=== PATIENT | male | born 1945 | race Two or more races ===

== ENCOUNTER 2023-06-15 14:32 | Observation (INO) | payer MEDICARE, OTHER, SELFPAY ==
[2023-06-15] VITALS (22 sets, daily range): BP systolic 133–173; BP diastolic 60–70; PULSE 79–103; RESP 11–28; TEMP 36.5–37.1; O2SAT 93–100; BMI 28.0; BMI 28.3
--- NOTE | 2023-06-15 14:53 | ECG_ITS ---
[facility] Test Date: 2023-06-15 Pat Name: MELO HOLLEY Department: Room: - Gender: Male Banking Services Officer: : 1945 Requested By: 0923 Order Number: [id number] Reading MD: DOMINIQUE VASQUEZ Measurements Intervals [place] Rate: 97 P: 45 CO: 164 QRS: -4 QRSD: 90 T: 90 QT: 344 QTc: 399 Interpretive Statements 1100 Sinus rhythm 9110 normal ECG No previous ECG available for comparison Electronically Signed On 06-20-2023 6:54:40 EST by DOMINIQUE VASQUEZ
[2023-06-15 15:00] LABS: Basophils Percent Auto 0.1 % (0.2-2.0); Hemoglobin 7.6 g/dL (14.0-18.0); Immature Granulocytes Abs Auto 0.07 10^3/uL (0.00-0.03); Immature Granulocytes Pct Auto 0.8 % (0.0-0.5); Lymphocytes Absolute Auto 0.8 10^3/uL (1.2-3.8); Mean Corpuscular HGB Conc 33.8 g/dL (29.9-35.2); Mean Corpuscular Hemoglobin 32.5 pg (25.9-34.0); Mean Corpuscular Volume 96.2 fL (80.0-94.0); Mean Platelet Volume 10.7 fL (9.5-13.5); Monocytes Absolute Auto 0.2 10^3/uL (0.3-0.8); Monocytes Percent Auto 1.8 % (1.7-12.0); Neutrophils Absolute Auto 7.8 10^3/uL (1.4-6.5); Neutrophils Percent Auto 88.3 % (43.0-75.0); Platelet Count 224 10^3/uL (150-450); Red Blood Count 2.34 10^6/uL (4.70-6.10); Red Cell Distribution Width 13.2 % (11.0-15.0); White Blood Count 8.8 10^3/uL (4.0-11.0)
[2023-06-15 15:03] LABS: Hematocrit 22.5 % (42.0-54.0)
[2023-06-15 15:16] LABS: Alanine Aminotransferase 31 U/L (16-63); Albumin Globulin Ratio 0.9; Albumin Level 3.6 g/dL (3.4-5.0); Alkaline Phosphatase 123 U/L (46-116); Anion Gap 11.7; Aspartate Amino Transferase 13 U/L (15-37); BUN Creatinine Ratio 21.7; Bilirubin Total 0.2 mg/dL (0.2-1.0); Calcium 8.3 mg/dL (8.5-10.1); Chloride 100 mmol/L (98-107); Estimated GFR (African America 38 (>=60); Estimated GFR (Non-African Ame 31 (>=60); Globulin 3.8 g/dL; Glucose 372 mg/dL (74-106); Potassium 4.7 mmol/L (3.5-5.1); Sodium 131 mmol/L (136-145); Total Protein 7.4 g/dL (6.4-8.2)
[2023-06-15 15:20] LABS: Troponin I High Sensitivity 17.8 pg/mL (4.0-76.1)
--- NOTE | 2023-06-15 15:23 | ED.GENADUL1 ---
HPI - General Adult General Chief complaint: Weakness Stated complaint: GENERAL WEAKNESS Time Seen by Provider: 06/15/23 14:45 Source: patient Mode of arrival: walk-in Limitations: no limitations History of Present Illness HPI narrative: 77-year-old male presents to the emergency room with a chief complaint of dizziness, chest pain and low hemoglobin. Patient went and saw his primary care physician today and was sent to the emergency room for admission stating he needed blood . Patient had a fingerstick in the office that showed a hemoglobin of 7.4. Patient does have a history of anemia with iron infusions. pt poor historian but states he has anemia due to chronic kidney disease.states he thinks he has had scopes in the past. He is scheduled to have an iron infusion in four days. He's had some shortness of breath and chest pressure. States he has a symptoms when he becomes low and iron. Related Data Allergies Allergy/AdvReac Type Severity Reaction Status Date / Time polyester fibers Allergy Severe itching Verified 06/15/23 14:50 simvastatin Allergy Severe Muscle Pain Verified 06/15/23 14:50 Penicillins Allergy Swelling Verified 06/15/23 14:50 of Lip/Tongue/Throat Review of Systems ROS Narrative All Systems are negative except as noted/marked.All systems reviewed and otherwise negative PFSH PFSH Social History Smoking status: Former smoker Exam Narrative Exam Narrative: Nurses note and vital signs reviewed and patient is not hypoxic. General: The patient appears well and in no apparent distress. Patient is resting comfortably on cart. Skin: Warm, dry, no pallor noted. There is no rash noted. Head: Normocephalic, atraumatic Eye: Normal conjunctiva, no drainage, EOMI. PERRL Ears, Nose, Mouth, and Throat: oral mucosa is moist. Nares patent. Mouth without vesicles. Ear canals patent. Tm's without Erythema Cardiovascular: Regular Rate and Rhythm Respiratory: Patient is in no distress, no accessory muscle use, lungs are clear to auscultation, no wheezing, rales or rhonchi Back: non-tender, no CVA tenderness bilaterally to percussion. Rectal exam: Good rectal tone, no acute rectal bleeding appreciated no dark stool GI: Normal bowel sounds, no tenderness to palpation, no masses appreciated. No rebound, guarding, or rigidity noted. Musculoskeletal: The patient has no evidence of calf tenderness, no pitting edema, symmetrical pulses noted bilaterally Neurological: A&O x4, normal speech Psychiatric: Cooperative Constitutional Vital Signs, click to edit/add: Last Vital Signs Temp 97.9 F 06/15/23 14:35 Pulse 102 H 06/15/23 14:35 Resp 20 06/15/23 14:35 BP 173/70 H 06/15/23 14:35 Pulse Ox 100 06/15/23 14:35 O2 Del Method Room Air 06/15/23 14:35 Course Vital Signs Vital signs: Vital Signs Temperature 97.9 F 06/15/23 14:35 Pulse Rate 102 H 06/15/23 14:35 Respiratory Rate 20 06/15/23 14:35 Blood Pressure 173/70 H 06/15/23 14:35 Pulse Oximetry 100 06/15/23 14:35 Oxygen Delivery Method Room Air 06/15/23 14:35 Temperature 97.9 F 06/15/23 14:35 Pulse Rate 102 H 06/15/23 14:35 Respiratory Rate 20 06/15/23 14:35 Blood Pressure 173/70 H 06/15/23 14:35 Pulse Oximetry 100 06/15/23 14:35 Oxygen Delivery Method Room Air 06/15/23 14:35 Medical Decision Making MDM Narrative Medical decision making narrative: Patient was sent to the emergency room by primary care physician's office. Patient went there office today because he had felt dizzy and weakness. States he felt chest pressure. He has a history of kidney disease with anemia. He states he was checked in their offices fingerstick there for his hemoglobin was 7.4. Labwork reviewed here shows a hemoglobin 7.6 hematocrit of 22.5. Sodium is one thirty-one BUN and creatinine is forty-five and 2.07. Patient's troponin is negative. Patient believes he has had upper and lower scopes before but cannot recall how long ago. He usually goes to suggest the [facility] for iron transfusions. Patient's admitted for anemia and gastrointestinal bleed here today. He will be admitted for observation telemetry. I did speak to Dr. Santillan concerning this patient's care. Differential Diagnosis Differential Diagnosis: anemia, gi bleed Medical Records Medical records reviewed: Yes I reviewed the patient's medical records Medical records narrative: Patient was sent to the emergency room by primary care physician's office. Patient went there office today because he had felt dizzy and weakness. States he felt chest pressure. He has a history of kidney disease with anemia. He states he was checked in their offices fingerstick there for his hemoglobin was 7.4. Labwork reviewed here shows a hemoglobin 7.6 hematocrit of 22.5. Sodium is one thirty-one BUN and creatinine is forty-five and 2.07. Patient's troponin is negative. Patient believes he has had upper and lower scopes before but cannot recall how long ago. He usually goes to suggest the [facility] for iron transfusions. Patient's admitted for anemia and gastrointestinal bleed here today. He will be admitted for observation telemetry. I did speak to Dr. Santillan concerning this patient's care. Lab Data Lab results reviewed: Yes I reviewed the patient's lab results Labs: Lab Results 06/15/23 06/15/23 Range/Units 14:52 15:20 WBC 8.8 (4.0-11.0) 10^3/uL RBC 2.34 L (4.70-6.10) 10^6/uL Hgb 7.6 L (14.0-18.0) g/dL Hct 22.5 L* (42.0-54.0) % MCV 96.2 H (80.0-94.0) fL MCH 32.5 (25.9-34.0) pg MCHC 33.8 (29.9-35.2) g/dL RDW 13.2 (11.0-15.0) % Plt Count 224 (150-450) 10^3/uL MPV 10.7 (9.5-13.5) fL Neut % (Auto) 88.3 H (43.0-75.0) % Lymph % (Auto) 9.0 L (20.5-60.0) % [place] % (Auto) 1.8 (1.7-12.0) % Eos % (Auto) 0.0 L (0.9-7.0) % Baso % (Auto) 0.1 L (0.2-2.0) % Neut # (Auto) 7.8 H (1.4-6.5) 10^3/uL Lymph # (Auto) 0.8 L (1.2-3.8) 10^3/uL [place] # (Auto) 0.2 L (0.3-0.8) 10^3/uL Eos # (Auto) 0.0 (0.0-0.7) 10^3/uL Baso # (Auto) 0.0 (0.0-0.1) 10^3/uL Abs Immat Gran (auto) 0.07 H (0.00-0.03) 10^3/uL Imm/Tot Granulo (auto) 0.8 H (0.0-0.5) % Sodium 131 L (136-145) mmol/L Potassium 4.7 (3.5-5.1) mmol/L Chloride 100 (98-107) mmol/L Carbon Dioxide 24.0 (21.0-32.0) mmol/L Anion Gap 11.7 BUN 45.0 H (7.0-18.0) mg/dL Creatinine 2.07 H (0.70-1.30) mg/dL Est GFR ( Amer) 38 L (>=60) Est GFR (Non-Af Amer) 31 L (>=60) BUN/Creatinine Ratio 21.7 Glucose 372 H (74-106) mg/dL Calcium 8.3 L (8.5-10.1) mg/dL Total Bilirubin 0.2 (0.2-1.0) mg/dL AST 13 L (15-37) U/L ALT 31 (16-63) U/L Alkaline Phosphatase 123 H (46-116) U/L Troponin I High Sens 17.8 (4.0-76.1) pg/mL Total Protein 7.4 (6.4-8.2) g/dL Albumin 3.6 (3.4-5.0) g/dL Globulin 3.8 g/dL Albumin/Globulin Ratio 0.9 Stool Occult Blood Positive A Blood Type O Positive Antibody Screen Negative ECG Data Attestation: ?I have reviewed the pertinent ECG results. Interpretation: 1520 Normal sinus rhythm with a rate of 97 bpm, OR interval 164 ms, QRS duration 90 ms, no STEMI Discharge Plan Discharge Chief Complaint: Weakness Clinical Impression: GI bleed, Anemia Patient Disposition: Admitted as Observation Time of Disposition Decision: 15:40 Condition: Fair
[2023-06-15 15:24] LABS: Occult Blood Positive
[2023-06-15] MEDS: 0.9 % SODIUM CHLORIDE 1,000 ML 1000 ML IV (15:30)
[2023-06-15] MEDS: DIPHENHYDRAMINE HCL 25 MG CAPSULE PO (23:07)
[2023-06-15] MEDS: FUROSEMIDE 40 MG/4 ML VIAL 20 MG IV (23:08)
[2023-06-16] VITALS (12 sets, daily range): BP systolic 135–154; BP diastolic 56–72; PULSE 55–91; RESP 16–18; TEMP 36.5–36.8; O2SAT 95–98
[2023-06-16] MEDS: IRON SUCROSE COMPLEX 200 MG in 0.9 % SODIUM CHLORIDE 100 ML 220 MG IV (03:25)
[2023-06-16 05:18] LABS: Basophils Percent Auto 0.2 % (0.2-2.0); Eosinophils Percent Auto 0.2 % (0.9-7.0); Hematocrit 26.4 % (42.0-54.0); Hemoglobin 8.7 g/dL (14.0-18.0); Immature Granulocytes Abs Auto 0.05 10^3/uL (0.00-0.03); Immature Granulocytes Pct Auto 0.6 % (0.0-0.5); Lymphocytes Absolute Auto 1.3 10^3/uL (1.2-3.8); Lymphocytes Percent Auto 15.9 % (20.5-60.0); Mean Platelet Volume 11.2 fL (9.5-13.5); Monocytes Absolute Auto 0.5 10^3/uL (0.3-0.8); Monocytes Percent Auto 6.3 % (1.7-12.0); Neutrophils Absolute Auto 6.4 10^3/uL (1.4-6.5); Neutrophils Percent Auto 76.8 % (43.0-75.0); Platelet Count 198 10^3/uL (150-450); Red Blood Count 2.81 10^6/uL (4.70-6.10); Red Cell Distribution Width 15.2 % (11.0-15.0); White Blood Count 8.4 10^3/uL (4.0-11.0)
[2023-06-16 05:35] LABS: Anion Gap 13.3; BUN Creatinine Ratio 24.7; Carbon Dioxide 22.3 mmol/L (21.0-32.0); Chloride 103 mmol/L (98-107); Estimated GFR (African America 42 (>=60); Estimated GFR (Non-African Ame 34 (>=60); Glucose 254 mg/dL (74-106); Potassium 4.6 mmol/L (3.5-5.1); Sodium 134 mmol/L (136-145)
[2023-06-16] MEDS: OMEPRAZOLE 20 MG CAPSULE.DR PO (05:37)
[2023-06-16] MEDS: LISINOPRIL 20 MG TABLET PO (09:36)
[2023-06-16 11:01] LABS: Hematocrit 27.4 % (42.0-54.0); Hemoglobin 9.3 g/dL (14.0-18.0)
--- NOTE | 2023-06-16 12:35 | PM.HP ---
H&P: HPI History of Present Illness Chief complaint: Generalized weakness, lightheadedness Narrative: HPI and Hospital Course: 77 y o male was sent from PCP's office after he was found to have low Hb of 7.6 He went to see his PCP for feeling tired, weak, along with orthostatic dizziness/lightheadedness and was found to have low Hb on blood work. Patient himself denies brbpr, or melena. He reports receiving blood transfusion a little over a year ago. He had EGD/colonoscopy about 4-5 years ago. He has CKD and was told that his anemia is due to CKD. Patient 2 units PRBC overnight and was hydrated with IVF. He reports feeling better today and has no active complaints to offer. Admission Diagnosis Symptomatic anemia Anemia due to GI blood loss. CKD 4 HTN Discharge Diagnosis as above Discharge status stable. Review of Systems ROS Status of ROS 10 or more systems reviewed and unremarkable except as noted in history and below [facility] Medical History (Updated 06/16/23 @ 12:44 by Shaikh Kayode MD) CKD (chronic kidney disease) stage 4, GFR 15-29 ml/min ?N18.4 - Chronic kidney disease, stage 4 (severe) (ICD-10) HTN (hypertension) ?I10 - Essential (primary) hypertension (ICD-10) Surgical History (Updated 06/15/23 @ 17:25 by Vero Richey LPN) History of appendectomy ?Z90.49 - Acquired absence of other specified parts of digestive tract (ICD-10) History of cholecystectomy ?Z90.49 - Acquired absence of other specified parts of digestive tract (ICD-10) Family History (Updated 06/15/23 @ 17:28 by Vero Richey LPN) Father Family history of CHF (congestive heart failure) Family history of myocardial infarction Brother Family history of CHF (congestive heart failure) Sister Family history of diabetes mellitus Social History (Updated 06/15/23 @ 17:29 by Vero Richey LPN) Within the past year, how often did you have a drink containing alcohol: never Within the past year, how many standard drinks containing alcohol did you have on a typical day: 1 or 2 Total score: 0 Score interpretation: A score less than 4 is consistent with normal alcohol consumption. Smoking status: Former smoker Second hand tobacco smoke exposure: No Non-prescribed substance use: denies use Previous occupational history: retired trailer truck driver Known occupational exposures/hazards: No Highest level of school completed/degree received: 9th grade Do you want help with school or training: No Are you now , , , , never or living with a partner: In a typical week, how many times do you talk on the telephone with family, friends, or neighbors: twice per week How often do you get together with friends or relatives: 3 or more times per week How often do you attend scientologist or latter-day services: 4 or more times per year Do you belong to any clubs or organizations such as scientologist groups unions, [employer] or athletic groups, or school groups: no Total score: 3 Score interpretation: A score of greater than or equal to 2 indicates the lowest level of social isolation. Little interest or pleasure in doing things: not at all Feeling down, depressed, or hopeless: not at all Feel stressed/tense/nervous/anxious/difficulty sleeping: not at all Due to disability, difficulty making decisions: No Do you think of yourself as: straight/heterosexual Gender Identity: male Meds Home Medications and Allergies Home Medications Medication Instructions Recorded Confirmed Type amlodipine 10 mg tablet 10 mg PO DAILY 06/15/23 06/15/23 History dexamethasone 2 mg tablet 2 mg PO DAILY 06/15/23 06/15/23 History lisinopril 20 mg tablet 20 mg PO DAILY 06/15/23 06/15/23 History pantoprazole 20 mg tablet,delayed 20 mg PO DAILY 06/15/23 06/15/23 History release pregabalin 25 mg capsule 25 mg PO TID 06/15/23 06/15/23 History thiamine HCl (vitamin B1) 100 mg 100 mg PO DAILY 06/15/23 06/15/23 History tablet tramadol 50 mg tablet 50 mg PO Q6H PRN pain 06/15/23 06/15/23 History Allergies Allergy/AdvReac Type Severity Reaction Status Date / Time polyester fibers Allergy Severe itching Verified 06/15/23 14:50 simvastatin Allergy Severe Muscle Pain Verified 06/15/23 14:50 Penicillins Allergy Swelling Verified 06/15/23 14:50 of Lip/Tongue/Throat Exam Constitutional Vital Signs, click to edit/add: Last Vital Signs Temp 98.2 F 06/16/23 04:31 Pulse 91 H 06/16/23 12:00 Resp 16 06/16/23 04:31 BP 135/62 06/16/23 04:31 Pulse Ox 95 06/16/23 04:31 O2 Del Method Room Air 06/16/23 04:31 Documenting provider has reviewed patient's vital signs: yes Common normals: no apparent distress and oriented x3 General appearance: cooperative HENMT Common normals: normocephalic and head/scalp atraumatic Head and scalp: normocephalic and atraumatic Eye Common normals: conjunctivae normal and no scleral icterus Conjunctiva: conjunctiva(e) normal Respiratory Common normals: normal respiratory effort and clear to auscultation bilaterally Effort & inspection: able to speak in complete sentences Auscultation: clear to auscultation bilaterally Cardio Common normals: regular rate, S1 normal heart sound and S2 normal heart sound Rate: regular rate Heart sounds: S1 normal and S2 normal GI Common normals: Normal to inspection, nondistended, normoactive bowel sounds present, soft to palpation, non-tender and no hepatosplenomegaly Palpation: soft and no hepatosplenomegaly Extremity Common normals: no clubbing, cyanosis or edema Neuro Common normals: oriented x3, moves all extremities and no focal motor deficits Psych Common normals: mental status grossly normal, denies hallucinations, denies homicidal ideation and denies suicidal ideation Results Labs Labs: Short CBC 06/15/23 06/16/23 06/16/23 Range/Units 14:52 04:21 10:52 WBC 8.8 8.4 (4.0-11.0) 10^3/uL Hgb 7.6 L 8.7 L 9.3 L (14.0-18.0) g/dL Hct 22.5 L* 26.4 L 27.4 L (42.0-54.0) % Plt Count 224 198 (150-450) 10^3/uL BMP 06/15/23 06/16/23 14:52 04:21 Sodium 131 L 134 L Potassium 4.7 4.6 Chloride 100 103 Carbon Dioxide 24.0 22.3 BUN 45.0 H 47.0 H Creatinine 2.07 H 1.90 H Glucose 372 H 254 H Calcium 8.3 L 8.0 L Liver Function 06/15/23 Range/Units 14:52 Total Bilirubin 0.2 (0.2-1.0) mg/dL AST 13 L (15-37) U/L ALT 31 (16-63) U/L Alkaline Phosphatase 123 H (46-116) U/L Albumin 3.6 (3.4-5.0) g/dL Assessment and Plan Assessment and Plan (1) Symptomatic anemia: (2) Anemia due to GI blood loss: (3) HTN (hypertension): Qualifiers: Hypertension type: primary hypertension Qualified Code(s): I10 - Essential (primary) hypertension (4) CKD (chronic kidney disease) stage 4, GFR 15-29 ml/min: Plan Presented with signs and symptoms of anemia. Patient Hemoglobin was 7.6 He received 2 units of PRBC. Hb stable since transfusion. Baseline Hb is 9-10. He reports feeling better and denies any current symptoms now. He also received IV iron infusion. Cause of anemia is likely GI Blood loss - positive occult blood. Will require outpatient GI evaluation. Patient educated and counseled on worrisome signs and symptoms and to seek care if he develops those. F/u with PCP in one week. Repeat CBC within one week to ensure Hb is stable.
== END 2023-06-16 12:53 | disposition home or self-care (01) ==
LOC: ER 15:53 → MS 17:17
PROVIDERS: Family Medicine; Physician Assistant; Admitting Provider Internal Medicine; Emergency Provider Emergency Medicine; PCP Family Medicine; Visit Provider Internal Medicine
DX: D62 Acute posthemorrhagic anemia (principal); K92.2 Gastrointestinal hemorrhage, unspecified; I12.9 Hypertensive chronic kidney disease with stage 1 through stage 4 chronic kidney disease, or unspecified chronic kidney disease; N18.4 Chronic kidney disease, stage 4 (severe); Z90.49 Acquired absence of other specified parts of digestive tract; Z79.899 Other long term (current) drug therapy; Z87.891 Personal history of nicotine dependence
CPT/HCPCS: 36415; 36430; 80048; 80053; 84484; 85014; 85018; 85025; 86850; 86900; 86901; 93005; 96361; 96365; 96375; 99285; G0328; G0378; J1756; P9016